=== PATIENT | female | born 1960 | race Caucasian/White ===

== ENCOUNTER 2021-06-15 10:10 | Outpatient (CLI) | payer OTHER | END 2021-06-15 10:11 | disposition home or self-care (01) | LOC: CSHMRI 10:10 | PROVIDERS: ATTEND Nurse Practitioner Family | DX: M48.062 Spinal stenosis, lumbar region with neurogenic claudication (principal); Q76.49 Other congenital malformations of spine, not associated with scoliosis; M51.36 Other intervertebral disc degeneration, lumbar region; M48.061 Spinal stenosis, lumbar region without neurogenic claudication | CPT/HCPCS: 72148 ==

== ENCOUNTER 2023-04-18 09:43 | Day surgery (SDC) | payer OTHER ==
[2023-04-16 15:48] VITALS: BMI 30.2
[2023-04-18] MEDS ORDERED: PROPOFOL 40 ML ONE (10:50)
== END 2023-04-18 11:35 | disposition home or self-care (01) ==
LOC: CSHSDC 09:43
PROVIDERS: ATTEND Internal Medicine Gastroenterology
PROC: 0DJD8ZZ Inspection of Lower Intestinal Tract, Via Natural or Artificial Opening Endoscopic (ICD-10-PCS; principal; 2023-04-18)
DX: Z12.11 Encounter for screening for malignant neoplasm of colon (principal); K64.8 Other hemorrhoids; E11.9 Type 2 diabetes mellitus without complications; Z80.0 Family history of malignant neoplasm of digestive organs; Z79.84 Long term (current) use of oral hypoglycemic drugs
CPT/HCPCS: 36416; J2704